=== PATIENT | male | born 1995 | race Caucasian/White ===

== ENCOUNTER 2018-05-29 19:58 | Emergency (ER) | payer OTHER ==
--- NOTE | 2018-05-29 20:39 | PDOC ---
Rapid Medical Evaluation Time Seen by Provider: 05/29/18 20:36 Medical Evaluation: Allergies Allergy/AdvReac Type Severity Reaction Status Date / Time No Known Allergies Allergy Verified 02/12/14 15:45 05/29/18 20:37 I have performed a brief in-person evaluation of this patient. The patient presents with a chief complaint of: chest pain x 3 days States pain in mid chest and mid back. Denies shortness of breath, dizziness or nausea Pertinent physical exam findings: NAD lungs clear bilaterally heart s1s2 no pedal edema I have ordered the following: ekg, labs The patient will proceed to the ED for further evaluation. Discharge Disposition - Diagnosis Chest pain - Referrals - Patient Instructions - Post Discharge Activity
[2018-05-29 20:41] VITALS: BP 112/74; PULSE 65; TEMP 98.2; BMI 29.2
[2018-05-29 21:03] LABS: BASO % 0.4 % (0-2.0); EOS % 2.1 % (0-4.5); HEMATOCRIT 44.6 % (35.4-49); HEMOGLOBIN 15.6 GM/dL (11.7-16.9); LYMPH % 26.8 % (8-40); MCHC 35.1 g/dl (32.0-35.9); MEAN CELL VOLUME 88.5 fl (80-96); MEAN PLT VOLUME 8.3 fl (7.5-11.1); MONO % 6.4 % (3.8-10.2); NEUT % 64.3 % (42.8-82.8); PLATELET COUNT 198 K/MM3 (134-434); RBC 5.04 M/mm3 (4.00-5.60); RDW 12.7 % (11.9-15.9); WHITE BLOOD COUNT 7.4 K/mm3 (4.0-10.0)
[2018-05-29 21:46] LABS: ALK PHOS 110 U/L (45-117); ANION GAP 8 MMOL/L (8-16); BILIRUBIN,TOTAL 0.6 mg/dL (0.2-1); BLOOD UREA NITROGEN 15 mg/dL (7-18); CALCIUM 8.6 mg/dL (8.5-10.1); CHLORIDE 106 mmol/L (98-107); CO2 26 mmol/L (21-32); GLUCOSE,RANDOM 72 mg/dL (74-106); POTASSIUM 4.1 mmol/L (3.5-5.1); SGOT/AST 17 U/L (15-37); SGPT/ALT 18 U/L (13-61); SODIUM 140 mmol/L (136-145); TOT PROT 7.6 g/dl (6.4-8.2)
[2018-05-29] MEDS ORDERED: ASPIRIN 81 MG CHEWABLE TABLETS PO ONE (23:00)
--- NOTE | 2018-05-29 23:14 | PDOC ---
History of Present Illness - General Chief Complaint: Chest Pain Stated Complaint: CHEST PAIN Time Seen by Provider: 05/29/18 20:36 History Source: Patient - History of Present Illness Initial Comments: 05/29/18 23:00 23 year old male c/oChest discomfort for the last 3 days. Patient reports that pain is midsternal and squeezing in nature. Denies dizziness, nausea, vomiting. Patient reports that he has been smoking PCP and sniffing cocaine. Denies diaphoresis, abdominal pain, headache, dizziness, weakness. 05/29/18 23:01 Past History - Past Medical History Allergies/Adverse Reactions: Allergies Allergy/AdvReac Type Severity Reaction Status Date / Time No Known Allergies Allergy Verified 05/29/18 20:41 Home Medications: Ambulatory Orders Amoxicillin/Potassium Clav [Augmentin 875-125 Tablet] 1 each PO BID #20 tablet 08/21/15 Pseudoephedrine HCl [Sudafed 24-Hour] 240 mg PO DAILY #10 tab.er.24h 08/21/15 Anemia: No Asthma: No Cancer: No Cardiac Disorders: No CVA: No COPD: No CHF: No Dementia: No Diabetes: No GI Disorders: No Disorders: No HTN: No Hypercholesterolemia: No Kidney Stones: No Liver Disease: No Seizures: No Thyroid Disease: No - Reproductive History Testicular Surgery: No - Immunization History Immunization Up to Date: No - Suicide/Smoking/Psychosocial Hx Smoking Status: No Smoking History: Never smoked Have you smoked in the past 12 months: No Number of Cigarettes Smoked Daily: 1 If you are a former smoker, when did you quit?: refused booklet Information on smoking cessation initiated: No 'Breaking Loose' booklet given: 02/12/14 Hx Alcohol Use: No Drug/Substance Use Hx: No Substance Use Type: Marijuana Hx Substance Use Treatment: Yes (NEW) Cardiac Specific PMH - Complaint Specific PMHX Pacemaker: No Review of Systems - Review of Systems Able to Perform ROS?: Yes Is the patient limited Frisian proficient: No Constitutional: No: Symptoms Reported, See HPI, Chills, Diaphoresis, Fever, Loss of Appetite, Malaise, Night Sweats, Weakness, Weight Stable, Unintentional Wgt. Loss, Unexplained wgt Loss, Other Respiratory: No: Symptoms reported, See HPI, Cough, Orthopnea, Shortness of Breath, SOB with Exertion, SOB at Rest, Stridor, Wheezing, Productive cough, Hemoptysis, Other Cardiac (ROS): Yes: Chest Pain. No: Symptoms Reported, See HPI, Edema, Irregular Heart Rate, Lightheadedness, Palpitations, Syncope, Chest Tightness, Other ABD/GI: No: Symptoms Reported, See HPI, Abdominal Distended, Abd. Pain w/ defecation, Blood Streaked Bowels, Constipated, Diarrhea, Difficulty Swallowing , Nausea, Poor Appetite, Poor Fluid Intake, Rectal Bleeding, Vomiting, Indigestion, Abdominal cramping, Tarry Stools, Other *Physical Exam - Vital Signs Last Vital Signs Temp Pulse Resp BP Pulse Ox 98.2 F 65 16 112/74 100 05/29/18 20:38 05/29/18 20:38 05/29/18 20:38 05/29/18 20:38 05/29/18 20:38 - Physical Exam General Appearance: Yes: Appropriately Dressed Respiratory/Chest: positive: Lungs Clear, Normal Breath Sounds Cardiovascular: positive: Regular Rhythm, Regular Rate Gastrointestinal/Abdominal: positive: Normal Bowel Sounds, Soft Extremity: positive: Normal Capillary Refill, Normal Inspection, Normal Range of Motion Integumentary: positive: Normal Color, Dry, Warm Neurologic: positive: Fully Oriented, Alert, Normal Mood/Affect Heart Score/ECG Review - History History: Slightly suspicious - Electrocardiogram EKG: Non specific repolarization disturbance - Age Age: </= 45 - Risk Factors Based on the list above the patient has:: No risk factors known - Troponin Troponin: </= normal limit - Score Heart Score - Total: 1 - ECG Intrepretation Rhythm: Regular Rhythm Comment:: 05/29/18 23:03 sinus bradycardia with premature atrial complexes 05/29/18 23:14 Sinus bradycardia 52 bpm. 05/29/18 23:17 Moderate Sedation - Procedure Monitoring Vital Signs: Procedure Monitoring Vital Signs Temperature 98.2 F 05/29/18 20:38 Pulse Rate 65 05/29/18 20:38 Respiratory Rate 16 05/29/18 20:38 Blood Pressure 112/74 05/29/18 20:38 O2 Sat by Pulse Oximetry (%) 100 05/29/18 20:38 ED Treatment Course - LABORATORY CBC & Chemistry Diagram: 05/29/18 20:55 05/29/18 20:56 - ADDITIONAL ORDERS Additional order review: Laboratory Results 05/29/18 20:56 Sodium 140 Potassium 4.1 Chloride 106 Carbon Dioxide 26 Anion Gap 8 BUN 15 Creatinine 1.0 Creat Clearance w eGFR > 60 Random Glucose 72 L Calcium 8.6 Total Bilirubin 0.6 AST 17 ALT 18 Alkaline Phosphatase 110 Troponin I < 0.02 Total Protein 7.6 Albumin 4.0 05/29/18 20:55 RBC 5.04 MCV 88.5 MCHC 35.1 RDW 12.7 MPV 8.3 Neutrophils % 64.3 D Lymphocytes % 26.8 D Monocytes % 6.4 Eosinophils % 2.1 D Basophils % 0.4 D - RADIOLOGY Radiology Studies Ordered: Category Date Time Status CHEST PA & LAT [RAD] Stat Radiology 05/29/18 22:01 Taken Medical Decision Making - Medical Decision Making 05/29/18 23:02 A: chest pain after cocaine use P: labs EKG obs patient refused obs stay for chest pain 05/29/18 23:15 Note: The patient insists on leaving the emergency dept and is signing out against medical advice. The patient understands the risks and complications that may result from the refusal of medical care and admission which includes and permanent disability. The patient has the mental capacity of understanding the risks of refusing care and is capable of making an informed decision. The patient was instructed to return to the emergency department should [] change [] mind regarding medical care or should [] condition worsen. The patient signed the Against Medical Advice form. *DC/Admit/Observation/Transfer Diagnosis at time of Disposition: Chest pain Qualifiers: Chest pain type: unspecified Qualified Code(s): R07.9 - Chest pain, unspecified - Discharge Dispostion Disposition: AGAINST MEDICAL ADVICE - Referrals Referrals: Royce Suggs MD [Staff Physician] - - Patient Instructions Printed Discharge Instructions: DI for Atypical Chest Pain Additional Instructions: please follow up with cardiology . return to the ER if symptoms worsen. - Post Discharge Activity
[2018-05-29] MEDS ORDERED: ASPIRIN 81 MG CHEWABLE TABLETS ONE (23:30)
--- NOTE | 2018-05-30 13:32 | EKG ---
Test Reason : Blood Pressure : / mmHG Vent. Rate : 052 BPM Atrial Rate : 052 BPM P-R Int : 182 ms QRS Dur : 094 ms QT Int : 440 ms P-R-T Axes : 061 067 047 degrees QTc Int : 409 ms SINUS BRADYCARDIA WITH SINUS ARRHYTHMIA OTHERWISE NORMAL ECG NO PREVIOUS ECGS AVAILABLE Confirmed by MD HUMBERTO, SHAREE ([id number]) on 05/30/2018 1:32:19 PM Referred By: Confirmed By:SHAREE PAUL MD
--- NOTE | 2018-06-03 18:12 | EKG ---
Test Reason : Blood Pressure : / mmHG Vent. Rate : 045 BPM Atrial Rate : 045 BPM P-R Int : 176 ms QRS Dur : 092 ms QT Int : 426 ms P-R-T Axes : 057 062 035 degrees QTc Int : 368 ms SINUS BRADYCARDIA WITH WITH MARKED SINUS ARRHYTHMIA RSR' OR QR PATTERN IN V1 SUGGESTS RIGHT VENTRICULAR CONDUCTION DELAY BORDERLINE ECG NO PREVIOUS ECGS AVAILABLE Confirmed by MD HUMBERTO, SHAREE ([id number]) on 06/03/2018 6:11:49 PM Referred By: Confirmed By:SHAREE PAUL MD
== END 2018-05-29 23:41 | disposition left against medical advice (07) ==
LOC: JER 19:58
DX: R07.9 Chest pain, unspecified (principal); F14.10 Cocaine abuse, uncomplicated; F16.10 Hallucinogen abuse, uncomplicated
CPT/HCPCS: 36415; 71046-TC-FY; 80053; 84484; 85025; 93005; 93010; 99282-25

== ENCOUNTER 2020-09-12 18:38 | Emergency (ER) | payer OTHER ==
[2020-09-12 19:02] VITALS: BP 104/66; PULSE 58; TEMP 98.1; BMI 25.7
== END 2020-09-12 19:57 | disposition home or self-care (01) ==
LOC: FER 18:38
DX: F10.920 Alcohol use, unspecified with intoxication, uncomplicated (principal)
CPT/HCPCS: 99281-25

== ENCOUNTER 2022-02-24 18:09 | Inpatient (IN) | payer BC, OTHER ==
[2022-02-24 21:32] VITALS: BMI 28.3
[2022-02-25] MEDS ORDERED: BISMUTH SUBSALICYLATE 524 MG/30 ML PO PRN (00:56)
[2022-02-25] MEDS ORDERED: MAG HYDROX/AL HYDROX/SIMETH 30 ML UNIT-DOSE CUP PO PRN (00:56)
[2022-02-25] MEDS ORDERED: NALOXONE HCL (KLOXXADO) 8 MG SPRAY NS PRN (00:56)
[2022-02-25] MEDS ORDERED: METHOCARBAMOL 500 MG TABLET PO PRN (00:56)
[2022-02-25] MEDS ORDERED: BENZOCAINE/MENTHOL (CHLORASEPTIC ) LOZENGE MM PRN (00:56)
[2022-02-25] MEDS ORDERED: IBUPROFEN 400 MG TABLET (FP) PO PRN (00:56)
[2022-02-25] MEDS ORDERED: chlordiazePOXIDE HCL 25 MG CAPSULE PO PRN (00:56)
[2022-02-25] MEDS ORDERED: IBUPROFEN 600 MG TABLET (FP) PO PRN (00:56)
[2022-02-25] MEDS ORDERED: MAGNESIUM HYDROX 2400MG/30ML ORAL SUSPENSION 30 ML CUP PO PRN (00:56)
[2022-02-25] MEDS ORDERED: POLYETHYLENE GLYCOL (HEALTHYLAX) 3350 17 GM PACKET PO PRN (00:56)
[2022-02-25] MEDS ORDERED: LOPERAMIDE HCL 2 MG CAPSULE PO PRN (00:56)
[2022-02-25] MEDS ORDERED: DICYCLOMINE HCL 10 MG CAPSULE PO PRN (00:56)
[2022-02-25] MEDS ORDERED: ONDANSETRON *ODT* 4 MG TABLET SL PRN (00:56)
[2022-02-25] MEDS ORDERED: ACETAMINOPHEN 325 MG TABLET (FP) PO PRN ×2 (00:56)
[2022-02-25] MEDS ORDERED: chlordiazePOXIDE HCL 25 MG CAPSULE PO SCH (05:00)
[2022-02-25] MEDS ORDERED: chlordiazePOXIDE HCL 25 MG CAPSULE ONE (07:23)
[2022-02-25] MEDS: PRENATAL VITAMINS W/ FOLIC ACID TABLET (FP) PO SCH (14:14)
[2022-02-25] MEDS ORDERED: TUBERCULIN PPD 5 TU/0.1ML VIAL ID ONE (14:16)
[2022-02-25 17:44] LABS: SYPHILIS W/ RPR CONF NON-REACTIVE (NONREACTIVE)
[2022-02-25] MEDS: MELATONIN 5 MG TABLETS PO SCH (21:07)
[2022-02-25] MEDS: THIAMINE HCL 100 MG TABLET (FP) PO SCH (21:07)
[2022-02-26] MEDS ORDERED: chlordiazePOXIDE HCL 25 MG CAPSULE PO SCH (05:00)
[2022-02-26] MEDS: PRENATAL VITAMINS W/ FOLIC ACID TABLET (FP) PO SCH (10:35)
[2022-02-26 10:42] LABS: HEMATOCRIT 41.9 % (35.4-49); HEMOGLOBIN 14.4 GM/dL (11.7-16.9); MCH 31.2 pg (25.7-33.7); MCHC 34.5 g/dl (32.0-35.9); MEAN CELL VOLUME 90.7 fl (80-96); MEAN PLT VOLUME 8.6 fl (7.5-11.1); PLATELET COUNT 233 10^3/uL (134-434); RBC 4.62 M/mm3 (4.00-5.60); RDW 12.4 % (11.9-15.9); WHITE BLOOD COUNT 5.6 K/mm3 (4.0-10.0)
[2022-02-26] MEDS ORDERED: hydrOXYzine PAMOATE 25 MG CAPSULE (FP) PO PRN (10:42)
[2022-02-26 11:58] LABS: ALBUMIN 3.8 g/dl (3.4-5.0); CALCIUM 9.4 mg/dL (8.5-10.1)
[2022-02-26 11:59] LABS: BLOOD UREA NITROGEN 14.1 mg/dL (7-18)
[2022-02-26 12:01] LABS: CREATININE 0.9 mg/dL (0.55-1.3)
[2022-02-26 12:03] LABS: BILIRUBIN,TOTAL 0.7 mg/dL (0.2-1); TOT PROT 7.2 g/dl (6.4-8.2)
[2022-02-26] MEDS ORDERED: PRENATAL VITAMINS W/ FOLIC ACID TABLET (FP) PO PRN (12:44)
[2022-02-26] MEDS: MELATONIN 5 MG TABLETS PO SCH (21:09)
[2022-02-26] MEDS: THIAMINE HCL 100 MG TABLET (FP) PO SCH (21:09)
[2022-02-26 22:28] LABS: HIV INTERPRETATION NEGATIVE (NEGATIVE)
[2022-02-27] MEDS ORDERED: chlordiazePOXIDE HCL 10 MG CAPSULE PO PRN
[2022-02-27] MEDS ORDERED: chlordiazePOXIDE HCL 10 MG CAPSULE PO SCH (05:00)
[2022-02-27] MEDS: MELATONIN 5 MG TABLETS PO SCH (21:50)
[2022-02-27] MEDS: THIAMINE HCL 100 MG TABLET (FP) PO SCH (21:50)
[2022-02-28] MEDS ORDERED: chlordiazePOXIDE HCL 10 MG CAPSULE PO SCH (05:00)
[2022-02-28 15:49] VITALS: PULSE 64
[2022-02-28] MEDS: THIAMINE HCL 100 MG TABLET (FP) PO SCH (22:02)
[2022-02-28] MEDS: MELATONIN 5 MG TABLETS PO SCH (22:02)
[2022-03-01] MEDS ORDERED: chlordiazePOXIDE HCL 10 MG CAPSULE PO ONE (05:00)
[2022-03-01 07:18] VITALS: BP 97/56; RESP 18; TEMP 96.9
== END 2022-03-01 12:48 | disposition home or self-care (01) | DRG 895 ==
LOC: YASAS 18:09 → Y3W 02-25 11:59
PROVIDERS: ADMIT Allergy & Immunology; ATTEND Psychiatry & Neurology Pain Medicine
PROC: HZ42ZZZ Group Counseling for Substance Abuse Treatment, Cognitive-Behavioral (ICD-10-PCS; principal; 2022-02-25)
DX: F10.20 Alcohol dependence, uncomplicated (principal); U07.1 COVID-19; F16.20 Hallucinogen dependence, uncomplicated; F19.280 Other psychoactive substance dependence with psychoactive substance-induced anxiety disorder; F41.9 Anxiety disorder, unspecified; F32.A Depression, unspecified; Z87.891 Personal history of nicotine dependence; Z56.0 Unemployment, unspecified; Z59.00 Homelessness unspecified
CPT/HCPCS: 36415; 80053; 85027; 86780; 87389; 87491; 87591; 87661; 93005; 93010; C9803-CS; U0003; U0005

== ENCOUNTER 2023-05-26 11:23 | Inpatient (IN) | payer BC, OTHER ==
[2023-05-26 11:54] VITALS: BMI 27.9
[2023-05-26] MEDS ORDERED: METHOCARBAMOL 500 MG TABLET PO PRN (13:27)
[2023-05-26] MEDS ORDERED: POLYETHYLENE GLYCOL (HEALTHYLAX) 3350 17 GM PACKET PO PRN (13:27)
[2023-05-26] MEDS ORDERED: traZODone HCL 50 MG TABLET (FP) PO PRN (13:27)
[2023-05-26] MEDS ORDERED: ACETAMINOPHEN 325 MG TABLET (FP) PO PRN (13:27)
[2023-05-26] MEDS ORDERED: DICYCLOMINE HCL 10 MG CAPSULE PO PRN (13:27)
[2023-05-26] MEDS ORDERED: BENZOCAINE/MENTHOL (CHLORASEPTIC ) LOZENGE MM PRN (13:27)
[2023-05-26] MEDS ORDERED: NALOXONE HCL 0.4 MG/ML VIAL IM PRN (13:27)
[2023-05-26] MEDS ORDERED: guaiFENesin 600 MG TABLET.ER (FP) PO PRN (13:27)
[2023-05-26] MEDS ORDERED: BENZONATATE 200 MG CAPSULE PO PRN (13:27)
[2023-05-26] MEDS ORDERED: NALOXONE HCL (KLOXXADO) 8 MG SPRAY NS PRN (13:27)
[2023-05-26] MEDS ORDERED: MAGNESIUM HYDROX 2400MG/30ML ORAL SUSPENSION 30 ML CUP PO PRN (13:27)
[2023-05-26] MEDS ORDERED: LOPERAMIDE HCL 2 MG CAPSULE PO PRN (13:27)
[2023-05-26] MEDS ORDERED: IBUPROFEN 600 MG TABLET (FP) PO PRN (13:27)
[2023-05-26] MEDS ORDERED: hydrOXYzine PAMOATE 25 MG CAPSULE (FP) PO PRN (13:27)
[2023-05-26] MEDS ORDERED: IBUPROFEN 400 MG TABLET (FP) PO PRN (13:27)
[2023-05-26] MEDS ORDERED: BISMUTH SUBSALICYLATE 524 MG/30 ML PO PRN (13:27)
[2023-05-26] MEDS ORDERED: chlordiazePOXIDE HCL 25 MG CAPSULE PO PRN (13:27)
[2023-05-26] MEDS: chlordiazePOXIDE HCL 25 MG CAPSULE PO SCH (17:18)
[2023-05-26] MEDS: THIAMINE HCL 100 MG TABLET (FP) PO SCH (22:11)
[2023-05-26] MEDS: MELATONIN 5 MG TABLETS PO SCH (22:11)
[2023-05-27] MEDS: PRENATAL VITAMINS W/ FOLIC ACID TABLET (FP) PO SCH (10:28)
[2023-05-27 12:46] LABS: HEMATOCRIT 43.2 % (35.4-49); HEMOGLOBIN 15.2 GM/dL (11.7-16.9); MCH 31.4 pg (25.7-33.7); MCHC 35.2 g/dl (32.0-35.9); MEAN CELL VOLUME 89.2 fl (80-96); MEAN PLT VOLUME 8.6 fl (7.5-11.1); PLATELET COUNT 224 10^3/uL (134-434); RBC 4.84 M/mm3 (4.00-5.60); RDW 13.3 % (11.9-15.9); WHITE BLOOD COUNT 4.3 K/mm3 (4.0-10.0)
[2023-05-27 12:52] LABS: POTASSIUM 3.9 mmol/L (3.5-5.1)
[2023-05-27 12:55] LABS: CALCIUM 8.6 mg/dL (8.5-10.1)
[2023-05-27 12:56] LABS: ALBUMIN 3.8 g/dl (3.4-5.0); BLOOD UREA NITROGEN 11.3 mg/dL (7-18)
[2023-05-27 12:59] LABS: CREATININE 0.9 mg/dL (0.55-1.3)
[2023-05-27 13:00] LABS: TOT PROT 7.5 g/dl (6.4-8.2)
[2023-05-27 13:01] LABS: BILIRUBIN,TOTAL 0.3 mg/dL (0.2-1)
[2023-05-27] MEDS: MAG HYDROX/AL HYDROX/SIMETH 30 ML UNIT-DOSE CUP PO PRN (16:52)
[2023-05-27] MEDS: ONDANSETRON *ODT* 4 MG TABLET SL PRN (16:53)
[2023-05-28] MEDS: chlordiazePOXIDE HCL 25 MG CAPSULE PO SCH (06:14)
[2023-05-28] MEDS: LACTULOSE 20 GM/30 ML UDC (FOR ORAL USE ONLY) PO SCH (14:22)
[2023-05-28 21:05] VITALS: RESP 18
[2023-05-29] MEDS ORDERED: chlordiazePOXIDE HCL 10 MG CAPSULE PO PRN
[2023-05-29] MEDS: chlordiazePOXIDE HCL 10 MG CAPSULE PO SCH (05:45)
[2023-05-29 06:35] VITALS: TEMP 97.6
[2023-05-29 12:58] VITALS: BP 116/59; PULSE 80
[2023-05-30] MEDS ORDERED: chlordiazePOXIDE HCL 10 MG CAPSULE PO SCH (05:00)
[2023-05-31] MEDS ORDERED: chlordiazePOXIDE HCL 10 MG CAPSULE PO ONE (05:00)
== END 2023-05-29 16:15 | disposition home or self-care (01) | DRG 775 ==
LOC: YASAS 11:23 → Y6N 14:24
PROVIDERS: ADMIT Allergy & Immunology; ATTEND Surgery
PROC: HZ2ZZZZ Detoxification Services for Substance Abuse Treatment (ICD-10-PCS; principal; 2023-05-26)
DX: F10.230 Alcohol dependence with withdrawal, uncomplicated (principal); F12.20 Cannabis dependence, uncomplicated; F16.20 Hallucinogen dependence, uncomplicated; M54.50 Low back pain, unspecified; G89.29 Other chronic pain; R79.89 Other specified abnormal findings of blood chemistry
CPT/HCPCS: 36415; 80053; 80305; 80307; 82140; 85027; 86780; 87635; 87811; 93005; 93010; Q0162

== ENCOUNTER 2024-01-09 08:39 | Inpatient (IN) | payer OTHER ==
[2024-01-09 10:10] VITALS: BMI 27.1
[2024-01-09] MEDS ORDERED: ACETAMINOPHEN 325 MG TABLET (FP) PO PRN (11:40)
[2024-01-09] MEDS ORDERED: NALOXONE (NYS OPIOID OVERDOSE PROGRAM) 4 MG/0.1 ML SPRAY NS PRN (11:40)
[2024-01-09] MEDS ORDERED: BENZONATATE 200 MG CAPSULE PO PRN (11:40)
[2024-01-09] MEDS ORDERED: NALOXONE (NARCAN) HCL 4 MG/0.1 ML SPRAY NS PRN (11:40)
[2024-01-09] MEDS ORDERED: guaiFENesin 600 MG TABLET.ER (FP) PO PRN (11:40)
[2024-01-09] MEDS ORDERED: METHOCARBAMOL 500 MG TABLET PO PRN (11:40)
[2024-01-09] MEDS ORDERED: MAGNESIUM HYDROX 2400MG/30ML ORAL SUSPENSION 30 ML CUP PO PRN (11:40)
[2024-01-09] MEDS ORDERED: MAG HYDROX/AL HYDROX/SIMETH 30 ML UNIT-DOSE CUP PO PRN (11:40)
[2024-01-09] MEDS ORDERED: IBUPROFEN 400 MG TABLET (FP) PO PRN (11:40)
[2024-01-09] MEDS ORDERED: ONDANSETRON *ODT* 4 MG TABLET SL PRN (11:40)
[2024-01-09] MEDS ORDERED: hydrOXYzine PAMOATE 25 MG CAPSULE (FP) PO PRN (11:40)
[2024-01-09] MEDS ORDERED: BISMUTH SUBSALICYLATE 262 MG/15 ML BTL PO PRN (11:40)
[2024-01-09] MEDS ORDERED: chlordiazePOXIDE HCL 25 MG CAPSULE PO PRN (11:40)
[2024-01-09] MEDS ORDERED: DICYCLOMINE HCL 10 MG CAPSULE PO PRN (11:40)
[2024-01-09] MEDS ORDERED: POLYETHYLENE GLYCOL (HEALTHYLAX) 3350 17 GM PACKET PO PRN (11:40)
[2024-01-09] MEDS ORDERED: LOPERAMIDE HCL 2 MG CAPSULE PO PRN (11:40)
[2024-01-09] MEDS ORDERED: BENZOCAINE/MENTHOL (CHLORASEPTIC ) LOZENGE MM PRN (11:40)
[2024-01-09] MEDS ORDERED: IBUPROFEN 600 MG TABLET (FP) PO PRN (11:40)
[2024-01-09] MEDS: NALTREXONE HCL 50 MG TABLET PO ONE (13:25)
[2024-01-09 13:33] VITALS: BP 104/63
[2024-01-09] MEDS ORDERED: chlordiazePOXIDE HCL 25 MG CAPSULE PO SCH (17:00)
[2024-01-09 17:47] VITALS: PULSE 68; RESP 18; TEMP 98
[2024-01-09] MEDS ORDERED: THIAMINE 100 MG TABLET PO SCH (22:00)
[2024-01-09] MEDS ORDERED: MELATONIN 5 MG TABLETS PO SCH (22:00)
[2024-01-10] MEDS ORDERED: PRENATAL VITAMINS W/ FOLIC ACID TABLET (FP) PO SCH (10:00)
[2024-01-10] MEDS ORDERED: NALTREXONE HCL 50 MG TABLET PO SCH (10:00)
[2024-01-11] MEDS ORDERED: chlordiazePOXIDE HCL 25 MG CAPSULE PO SCH (05:00)
[2024-01-12] MEDS ORDERED: chlordiazePOXIDE HCL 10 MG CAPSULE PO PRN
[2024-01-12] MEDS ORDERED: chlordiazePOXIDE HCL 10 MG CAPSULE PO SCH (05:00)
[2024-01-13] MEDS ORDERED: chlordiazePOXIDE HCL 10 MG CAPSULE PO SCH (05:00)
[2024-01-14] MEDS ORDERED: chlordiazePOXIDE HCL 10 MG CAPSULE PO ONE (05:00)
== END 2024-01-09 17:18 | disposition left against medical advice (07) | DRG 770 ==
LOC: YASAS 08:39 → Y3N 11:43
PROVIDERS: ADMIT Allergy & Immunology; ATTEND Surgery
PROC: HZ2ZZZZ Detoxification Services for Substance Abuse Treatment (ICD-10-PCS; principal; 2024-01-09)
DX: F10.230 Alcohol dependence with withdrawal, uncomplicated (principal); F16.20 Hallucinogen dependence, uncomplicated; F12.10 Cannabis abuse, uncomplicated; Z72.0 Tobacco use; F41.8 Other specified anxiety disorders
CPT/HCPCS: 80305; 93005; 93010